=== PATIENT | female | born 1975 | race Caucasian/White ===

== ENCOUNTER → 2021-08-16 | Day surgery (SDC) | payer OTHER ==
[~2021-08-16] VITALS: Ht 175.3 cm; Wt 99.8 kg
[~2021-08-16] MED LIST: AMLODIPINE BESYL5 MG PO; CLARITIN10 MG PO; METFORMIN HCL500 MG PO; NORCO 5-325 TA1 EACH PO
[2021-08-16 08:20] LABS: BUN/CREAT RATIO (CALC) 20.8 RATIO; CREATININE 0.72 mg/dL (0.51-0.95); POTASSIUM 4.1 mmol/L (3.5-5.1)
== END | disposition home or self-care (01) ==
LOC: FAS 07:22
PROVIDERS: Anesthesiology
DX: D17.1 Benign lipomatous neoplasm of skin and subcutaneous tissue of trunk (principal); I10 Essential (primary) hypertension; E28.2 Polycystic ovarian syndrome
CPT/HCPCS: 36415; 80048; 93005; J1100; J2250; J2405; J2704; J3010; J7120